=== PATIENT | female | born 2005 ===

== ENCOUNTER 2023-12-19 12:44 | Outpatient (CLI) | payer OTHER | END 2023-12-19 12:45 | disposition home or self-care (01) | LOC: CSHLAB 12:44 | PROVIDERS: ATTEND Student in an Organized Health Care Education/Training Program | DX: Z01.812 Encounter for preprocedural laboratory examination (principal); N94.6 Dysmenorrhea, unspecified | CPT/HCPCS: 84703; 85027; 86850; 86900; 86901 ==

== ENCOUNTER 2023-12-21 07:24 | Day surgery (SDC) | payer OTHER ==
[2023-12-19 13:13] VITALS: BMI 23.3
[2023-12-19 14:11] LABS: Hematocrit 43.2 % (34.9-44.5); Hemoglobin 14.9 g/dL (12.0-15.5); Mean Corpuscular HGB CONC 34.5 g/dL (32.0-36.0); Mean Corpuscular Volume 89.8 fL (81.6-98.3); Mean Platelet Volume 12.4 fL (7.4-10.4); Platelet Count 242 10x3/uL (150-450); RBC Distribution Width 10.8 % (11.5-14.5); Red Blood Cell (RBC) Count 4.81 10x6/uL (3.90-5.03); White Blood Cell (WBC) Count 6.5 10x3/uL (3.5-10.5)
[2023-12-19 14:21] LABS: BHCG - Serum Negative (NEGATIVE); Pregs Control Background? CLEAR/WHITE (CLR/WHITE); Pregs Control Bar Appear? YES (CONTROL BAR)
[2023-12-21] MEDS ORDERED: Scopolamine 1 mg/72 hour Patch ONE (08:52)
[2023-12-21] MEDS ORDERED: CeleCOXIB 100 MG CAP ONE (08:52)
[2023-12-21] MEDS ORDERED: Gabapentin 300 MG CAP ONE (08:52)
[2023-12-21] MEDS ORDERED: Famotidine/PF 20 mg/2ml Vial ONE (08:53)
[2023-12-21] MEDS ORDERED: Bupivacaine HCl 0.5%/Epinephrine 1:200,000/PF 30 ml Vial ONE (08:57)
[2023-12-21] MEDS ORDERED: CEFAZOLIN 2 GM VIAL ONE (08:57)
[2023-12-21] MEDS ORDERED: PROPOFOL 20 ML ONE (09:51)
[2023-12-21] MEDS ORDERED: Rocuronium Bromide 10 MG/ML (10ML VIAL) ONE (09:52)
[2023-12-21] MEDS ORDERED: Lidocaine 1% PF 5 ML VIAL ONE (09:52)
[2023-12-21] MEDS ORDERED: fentaNYL 50 mcg/mL 1 mL Vial ONE ×5 (09:52→13:05)
[2023-12-21] MEDS ORDERED: Midazolam HCl 2 mg/2 ml Vial ONE (10:05)
[2023-12-21] MEDS ORDERED: Dexmedetomidine 200 MCG/2 ML VIAL ONE (10:28)
[2023-12-21] MEDS ORDERED: Ondansetron PF 4 MG/2 ML Vial ONE (10:33)
[2023-12-21] MEDS ORDERED: Dexamethasone 4 mg/ml Vial ONE (10:33)
[2023-12-21] MEDS ORDERED: Ketorolac Tromethamine 30 MG (1 mL) VIAL ONE (11:31)
[2023-12-21] MEDS ORDERED: SUGAMMADEX SODIUM 200 MG/2 ML VIAL ONE (11:42)
[2023-12-21] MEDS ORDERED: Meperidine HCl/PF 25 MG (1 mL) VIAL ONE (12:26)
[2023-12-21] MEDS ORDERED: HYDROcodone/Acetaminophen 5/325 mg Tablet ONE (13:33)
== END 2023-12-21 14:20 | disposition home or self-care (01) ==
LOC: CSHSDC 07:24
PROVIDERS: ATTEND Student in an Organized Health Care Education/Training Program
PROC: 0UDB8ZX Extraction of Endometrium, Via Natural or Artificial Opening Endoscopic, Diagnostic (ICD-10-PCS; principal; 2023-12-21)
DX: N85.01 Benign endometrial hyperplasia (principal); N94.89 Other specified conditions associated with female genital organs and menstrual cycle; Z79.890 Hormone replacement therapy; Z88.0 Allergy status to penicillin
CPT/HCPCS: 36415; 84703; 85027; 86850; 86900; 86901; 88305; C1889; J1100; J1885; J2175; J2250; J2405; J2704; J3010; J3490